=== PATIENT | male | born 1960 | race Caucasian/White ===

== ENCOUNTER 2020-04-30 14:55 | Inpatient (IN) | payer SELFPAY ==
[~2020-04-30] VITALS: Ht 165.1 cm; Wt 88.1 kg
[2020-04-30] MEDS ORDERED: ASPIRIN 81MG TABLET PO ONE (15:15)
[2020-04-30 15:55] LABS: CHLORIDE 106 mEq/L (98-107)
[2020-04-30 15:56] LABS: BASOPHILS % 1.1 % (0.0-2.0); EOSINOPHILS % 1.9 % (0.0-5.0); HEMATOCRIT. 43.8 % (42.0-52.0); HEMOGLOBIN. 14.3 g/dL (14.0-18.0); LYMPHOCYTES % 17.5 % (20.0-50.0); MEAN CORPUSCULAR HEMOGLOBIN 27.2 pg (28.0-32.0); MEAN CORPUSCULAR VOLUME 83.2 fL (80.0-94.0); MEAN PLATELET VOLUME 7.9 fl (7.4-10.4); MONOCYTES % 5.6 % (2.0-8.0); NEUTROPHILS % 73.9 % (40.0-76.0); PLATELET 250 x1000/uL (130-400); RED BLOOD CELL COUNT 5.27 mill/uL (4.7-6.1); RED CELL DISTRIBUTION WIDTH 15.6 % (11.6-14.6)
[2020-04-30] MEDS ORDERED: ENOXAPARIN 100MG/ML SYR SUBCUT ONE (17:00)
[2020-04-30] MEDS: NITROGLYCERIN 0.4MG TABLET SL SL PRN ×3 (17:40→19:04)
[2020-04-30] MEDS ORDERED: POTASSIUM CHLORIDE 20MEQ TABLET SR PO ONE (17:45)
[2020-04-30] MEDS ORDERED: IPRATROPIUM/ALBUTEROL 0.5-3(2.5)MG/3ML NEB HHN PRN (20:45)
[2020-04-30] MEDS ORDERED: DIPHENHYDRAMINE 50MG/ML VIAL IV PRN (20:45)
[2020-04-30] MEDS ORDERED: MORPHINE SULFATE 2 MG/ML CPJ (NOT FOR IM USE) IV PRN (20:45)
[2020-04-30] MEDS ORDERED: ONDANSETRON HCL 4MG/2ML INJ IV PRN (20:45)
[2020-04-30] MEDS ORDERED: ENOXAPARIN 30MG/0.3ML SYR SUBCUT SCH (21:00)
[2020-04-30 21:10] LABS: PHOSPHORUS 2.9 mg/dL (2.5-4.9)
[2020-04-30] MEDS: CLONIDINE 0.1MG TABLET PO PRN (22:05)
[2020-04-30 23:36] VITALS: BP 154/102
[2020-04-30 23:59] LABS: CREATINE KINASE MB FRACTION 12.5 ng/mL (0.5-3.6)
[2020-05-01] VITALS (12 sets, daily range): BP systolic 110–185; BP diastolic 59–120
[2020-05-01] MEDS: NITROGLYCERIN OINT 1GM/INCH UDPKT TD SCH ×3 (02:36→17:40)
[2020-05-01] MEDS ORDERED: ENOXAPARIN 100MG/ML SYR SUBCUT NR (06:00)
[2020-05-01] MEDS ORDERED: ASPIRIN 81MG EC TABLET PO SCH (09:00)
[2020-05-01 11:01] LABS: CLARITY URINE CLEAR (CLEAR); COLOR URINE YELLOW (YELLOW); KETONES URINE TRACE (NEGATIVE); LEUKOCYTE ESTERASE URINE NEGATIVE (NEGATIVE); NITRITE URINE NEGATIVE (NEGATIVE); OCCULT BLOOD URINE NEGATIVE (NEGATIVE); PROTEIN URINE NEGATIVE (NEGATIVE); SPECIFIC GRAVITY URINE 1.023 (1.005-1.030); UROBILINOGEN URINE 0.2 E.U./dL (0.2-1.0)
[2020-05-01] MEDS: SODIUM CHLORIDE 0.45% 1,000 ML IV SCH ×2 (11:18→23:16)
[2020-05-01 11:22] LABS: OPIATES URINE SCREEN NEGATIVE (NEGATIVE); PHENCYCLIDINE URINE SCREEN NEGATIVE (NEGATIVE)
[2020-05-01 11:23] LABS: *AMPHETAMINES SCREEN URINE NEGATIVE (NEGATIVE); *BARBITURATES SCREEN URINE NEGATIVE (NEGATIVE); *BENZODIAZEPINES SCREEN URINE NEGATIVE (NEGATIVE); *COCAINE SCREEN URINE NEGATIVE (NEGATIVE); CANNABINOID URINE SCREEN PRESUMTIVE POSITIVE (NEGATIVE); METHADONE URINE SCREEN NEGATIVE (NEGATIVE)
[2020-05-01] MEDS ORDERED: LIDOCAINE HCL 1% 20ML VIAL (Pyxis) INJ ONE (12:25)
[2020-05-01] MEDS ORDERED: MIDAZOLAM HCL 2 MG/2 ML VIAL ONE ×2 (12:26→14:16)
[2020-05-01] MEDS ORDERED: IODIXANOL 320MG/ML 100 ML BOTTLE IV ONE (12:26)
[2020-05-01] MEDS ORDERED: FENTANYL CITRATE/PF 50MCG/ML 2ML VIAL ONE ×2 (12:26→14:17)
[2020-05-01] MEDS ORDERED: IOHEXOL-300 100 ML BOTTLE ONE (12:27)
[2020-05-01] MEDS ORDERED: FENTANYL CITRATE/PF 50MCG/ML 5ML VIAL ONE (12:31)
[2020-05-01] MEDS ORDERED: MIDAZOLAM HCL 5 MG/5 ML VIAL ONE (12:31)
[2020-05-01] MEDS ORDERED: IODIXANOL 320MG/ML 200ML BOTTLE ONE ×2 (13:33→14:11)
[2020-05-01] MEDS ORDERED: ATROPINE SULFATE 1MG/10ML SYR IV PRN (14:30)
[2020-05-01] MEDS ORDERED: ACETAMINOPHEN 325MG TABLET PO PRN (14:30)
[2020-05-01] MEDS ORDERED: ONDANSETRON HCL 4MG/2ML INJ IV PRN (14:30)
[2020-05-01] MEDS ORDERED: CLOPIDOGREL 75MG TABLET ONE (14:34)
[2020-05-01] MEDS ORDERED: ASPIRIN 325MG TABLET ONE (14:34)
[2020-05-01] MEDS ORDERED: METOPROLOL TARTRATE 5MG/5ML VIAL IV ONE (14:39)
[2020-05-01 15:20] LABS: BASOPHILS % 0.9 % (0.0-2.0); EOSINOPHILS % 2.2 % (0.0-5.0); HEMATOCRIT. 42.3 % (42.0-52.0); HEMOGLOBIN. 13.8 g/dL (14.0-18.0); LYMPHOCYTES % 14.6 % (20.0-50.0); MEAN CORPUSCULAR HEMOGLOBIN 27.2 pg (28.0-32.0); MEAN CORPUSCULAR VOLUME 83.2 fL (80.0-94.0); NEUTROPHILS % 75.3 % (40.0-76.0); PLATELET 254 x1000/uL (130-400); RED BLOOD CELL COUNT 5.09 mill/uL (4.7-6.1); RED CELL DISTRIBUTION WIDTH 15.3 % (11.6-14.6)
[2020-05-01 15:27] LABS: CHLORIDE 103 mEq/L (98-107)
[2020-05-01 15:35] LABS: HDL CHOLESTEROL 45 mg/dL (40-59); LDL CHOLESTEROL 208 mg/dL (5-100)
[2020-05-01 15:37] LABS: CREATINE KINASE 136 IU/L (39-308)
[2020-05-01 15:40] LABS: CREATINE KINASE MB FRACTION 5.7 ng/mL (0.5-3.6)
[2020-05-01] MEDS: CLONIDINE 0.1MG TABLET PO PRN (16:31)
[2020-05-01] MEDS ORDERED: CLONIDINE 0.2MG TABLET PO PRN (17:15)
[2020-05-01] MEDS: LOSARTAN POTASSIUM 50 MG TABLET PO SCH (17:40)
[2020-05-01] MEDS ORDERED: ATORVASTATIN CALCIUM 40MG TABLET PO SCH (21:00)
[2020-05-01] MEDS ORDERED: ENOXAPARIN 30MG/0.3ML SYR SUBCUT SCH (21:00)
[2020-05-01] MEDS: AMLODIPINE 5MG TABLET PO SCH (23:12)
[2020-05-02] VITALS (8 sets, daily range): BP systolic 86–127; BP diastolic 51–84
[2020-05-02] MEDS: NITROGLYCERIN OINT 1GM/INCH UDPKT TD SCH ×2 (02:00→09:03)
[2020-05-02 06:55] LABS: CHLORIDE 104 mEq/L (98-107)
[2020-05-02 07:14] LABS: BASOPHILS % 0.7 % (0.0-2.0); EOSINOPHILS % 2.1 % (0.0-5.0); HEMOGLOBIN. 13.3 g/dL (14.0-18.0); MEAN CORPUSCULAR HEMOGLOBIN 28.3 pg (28.0-32.0); MEAN CORPUSCULAR VOLUME 82.9 fL (80.0-94.0); MEAN PLATELET VOLUME 8.1 fl (7.4-10.4); MONOCYTES % 9.3 % (2.0-8.0); NEUTROPHILS % 73.9 % (40.0-76.0); PLATELET 252 x1000/uL (130-400); RED CELL DISTRIBUTION WIDTH 14.8 % (11.6-14.6)
[2020-05-02] MEDS: AMLODIPINE 5MG TABLET PO SCH (09:00)
[2020-05-02] MEDS ORDERED: CLOPIDOGREL 75MG TABLET PO SCH (09:00)
[2020-05-02] MEDS: LOSARTAN POTASSIUM 50 MG TABLET PO SCH (09:00)
[2020-05-02] MEDS ORDERED: ASPIRIN 325MG TABLET PO SCH (09:00)
[2020-05-02] MEDS: SODIUM CHLORIDE 0.45% 1,000 ML IV SCH (12:00)
[2020-05-02] MEDS ORDERED: AMLO5TAB88 PO (12:21)
[2020-05-02] MEDS ORDERED: LOSA50TA3 PO (12:21)
== END 2020-05-02 16:00 | disposition home or self-care (01) | DRG 174 ==
LOC: ER 15:12 → 3WST 17:16 → EDBEDREQ 17:34 → ENRESERV 20:58
PROVIDERS: ADMIT Internal Medicine; ATTEND Internal Medicine
PROC: 027034Z Dilation of Coronary Artery, One Artery with Drug-eluting Intraluminal Device, Percutaneous Approach (ICD-10-PCS; principal; 2020-05-01)
PROC: 4A023N7 Measurement of Cardiac Sampling and Pressure, Left Heart, Percutaneous Approach (ICD-10-PCS; 2020-05-01)
PROC: B215YZZ Fluoroscopy of Left Heart using Other Contrast (ICD-10-PCS; 2020-05-01)
PROC: B211YZZ Fluoroscopy of Multiple Coronary Arteries using Other Contrast (ICD-10-PCS; 2020-05-01)
DX: I21.4 Non-ST elevation (NSTEMI) myocardial infarction (principal); E78.5 Hyperlipidemia, unspecified; I10 Essential (primary) hypertension; T82.855A Stenosis of coronary artery stent, initial encounter; Y84.6 Urinary catheterization as the cause of abnormal reaction of the patient, or of later complication, without mention of misadventure at the time of the procedure; E78.00 Pure hypercholesterolemia, unspecified; I25.10 Atherosclerotic heart disease of native coronary artery without angina pectoris; Z20.822 Contact with and (suspected) exposure to COVID-19; Z90.49 Acquired absence of other specified parts of digestive tract; Z82.3 Family history of stroke; Z82.49 Family history of ischemic heart disease and other diseases of the circulatory system; Y92.89 Other specified places as the place of occurrence of the external cause
CPT/HCPCS: 36415; 71045; 80048; 80053; 80061; 80305; 81003; 82550; 82553; 83735; 83880; 84100; 84484; 85025; 85347; 87426; 92928; 93005; 93306; 93458; 93970; 99291; C1769; C1874; C1887; C1893; J1644; J1650; J2250; J3010; J3490; Q9967; C1725